=== PATIENT | male | born 1950 | race Hispanic/Latino ===

== ENCOUNTER 2023-05-06 08:23 | Day surgery (SDC) | payer OTHER, MEDICARE ==
[2023-04-30 13:15] LABS: ADD UA MICROSCOPIC YES
[2023-04-30 13:17] LABS: BASOPHILS # (AUTO) 0.06 K/uL (0.00-0.20); EOSINOPHILS # (AUTO) 0.18 K/uL (0.00-0.70); EOSINOPHILS % (AUTO) 3.1 % (0.0-8.0); HEMATOCRIT 43.2 % (42-54); IMMATURE GRANULOCYTE ABSOLUTE 0.02 K/uL (0-1); LYMPHOCYTES # (AUTO) 1.6 K/uL (1.0-4.8); LYMPHOCYTES % (AUTO) 26.4 % (21.0-51.0); MEAN CORPUSCULAR HEMOGLOBIN 31.3 pg (27.0-33.0); MEAN CORPUSCULAR VOLUME 92.1 fL (79-99); MONOCYTES # (AUTO) 0.5 K/uL (0.1-1.0); NEUTROPHILS # (AUTO) 3.6 K/uL (1.8-7.7); NEUTROPHILS % (AUTO) 61.2 % (40.0-77.0); PLATELET COUNT (AUTO) 243 K/uL (130-400); RED BLOOD CELL COUNT(AUTO) 4.69 MIL/uL (4.50-6.20); WHITE BLOOD COUNT (AUTO) 5.9 K/uL (4.8-10.8)
[2023-04-30 13:18] VITALS: BP 150/85; PULSE 69; RESP 18
[2023-04-30 13:23] LABS: CREATININE 1.1 mg/dL (0.5-1.5)
[2023-04-30 13:25] LABS: APPEARANCE,URINE CLOUDY (CLEAR); BACTERIA,URINE FEW /HPF (None Seen); BILIRUBIN,URINE NEGATIVE (NEGATIVE); COLOR,URINE YELLOW (YELLOW); GLUCOSE, URINE (UA) NEGATIVE (NEGATIVE); KETONES,URINE NEGATIVE (NEGATIVE); LEUKOCYTE ESTERASE ,URINE 250 Leu/uL (NEGATIVE); MUCUS,URINE FEW LPF (None Seen); NITRATE,URINE NEGATIVE (NEGATIVE); OCCULT BLOOD,URINE LARGE (NEGATIVE); PROTEIN,URINE 70 mg/dL (NEGATIVE); RBC,URINE TNTC /HPF (0-1); SQUAMOUS EPITHELIAL CELL,UR RARE /HPF (0-2); UROBILINOGEN,URINE 0.2 mg/dL (0.2-1.0); WBC,URINE 51-100 /HPF (0-1)
[2023-04-30 13:26] LABS: INR 0.94 (0.85-1.15); PROTHROMBIN TIME 10.9 SEC (9.6-11.6)
[2023-05-06] VITALS (18 sets, daily range): BP systolic 125–148; BP diastolic 63–89; PULSE 77–91; RESP 13–18
[~2023-05-06] VITALS: Ht 170.2 cm; Wt 80.4 kg
[~2023-05-06 08:23] MED LIST: ATOR10 PO; CLOP75TA32 PO; ERGO500093 PO; PANT40TA54 PO; TAMS-1 PO; TIZA4CAP8 PO
[2023-05-06] MEDS ORDERED: CEFTRIAXONE 1G VIAL ONE (08:50)
[2023-05-06] MEDS ORDERED: LACTATED RINGERS 1000ML 1,000 ML IV ONE (08:50)
[2023-05-06] MEDS ORDERED: FAMOTIDINE 20MG VIAL IV ONE (11:35)
[2023-05-06] MEDS ORDERED: HYDROMORPHONE 1 MG INJ ONE (11:35)
[2023-05-06] MEDS ORDERED: PROPOFOL 10 MG/ML 20ML VIAL IV ONE (11:38)
[2023-05-06] MEDS ORDERED: ROCURONIUM 10MG/1ML SYR 10 MG/ML ML ONE (11:42)
[2023-05-06] MEDS ORDERED: LIDOCAINE PF 100MG/5ML (2%) SYRINGE 5ML ONE (11:42)
[2023-05-06] MEDS ORDERED: GLYCOPYRROLATE 1 MG/5 ML SYRINGE ONE (11:42)
[2023-05-06] MEDS ORDERED: ONDANSETRON 4MG INJ ONE (12:24)
[2023-05-06] MEDS ORDERED: NEOSTIGMINE 5MG/5ML SYR IV ONE (13:12)
[2023-05-06] MEDS ORDERED: EPHEDRINE SULFATE 50 MG/ML AMPULE ONE (13:13)
[2023-05-06] MEDS ORDERED: BACITRACIN 1 EACH PACKET TP ONE (14:03)
[2023-05-06] MEDS ORDERED: HYDROCODONE/ACETAMINOPHEN 5/325 MG TAB PO SCH (14:38)
[2023-05-06] MEDS ORDERED: HYDROCODONE/ACETAMINOPHEN 5/325 MG TAB ONE (14:38)
[2023-05-06] MEDS ORDERED: HYDROCODONE/ACETAMINOPHEN 5/325 MG TAB PO ONE (15:00)
== END 2023-05-06 15:20 | disposition home or self-care (01) ==
LOC: DAH 08:23
PROVIDERS: ATTEND Urology
DX: N40.1 Benign prostatic hyperplasia with lower urinary tract symptoms (principal); R33.8 Other retention of urine; K21.9 Gastro-esophageal reflux disease without esophagitis; Z79.01 Long term (current) use of anticoagulants; Z86.73 Personal history of transient ischemic attack (TIA), and cerebral infarction without residual deficits
CPT/HCPCS: 80048; 85025; 85610; 85730; 87077; 87088; 87186; 81001; 36415; 71045; 93005; 52648; 88307; A6260; A4663; J7030; C1758; A4354; J7120; J3490 ×3; J1170; J2710; J2001; J0696; J2704; J2405; A4358; A4930; A4215; A4223; A4222; A4221; A4600